=== PATIENT | male | born 1980 | race Asian ===

== ENCOUNTER 2023-03-24 08:20 | Emergency (ER) | payer SELFPAY ==
[~2023-03-24] VITALS: Ht 165.1 cm; Wt 70.3 kg
[2023-03-24 08:20] VITALS: BP_SYST 144; PULSE 83; RESP 17; TEMP 97.6; O2SAT 98
[2023-03-24 09:35] LABS: BASOPHILS % (AUTO) 0.7 % (0.0-2.0); EOSINOPHILS # (AUTO) 0.1 K/uL (0.0-0.4); EOSINOPHILS % (AUTO) 1.1 % (0.0-4.0); HEMATOCRIT 42.1 % (36-54); HEMOGLOBIN 13.9 g/dL (14.0-18.0); LYMPHOCYTES # (AUTO) 1.9 K/uL (1.0-5.5); LYMPHOCYTES % (AUTO) 32.5 % (20.5-51.5); MEAN CORPUSCULAR HEMOGLOBIN 28 pg (27-31); MEAN CORPUSCULAR HGB CONC 33 % (32-36); MEAN CORPUSCULAR VOLUME 85 fL (79.0-98.0); MONOCYTES # (AUTO) 0.5 K/uL (0.0-1.0); MONOCYTES % (AUTO) 9.1 % (1.7-9.3); NEUTROPHILS # (AUTO) 3.4 K/uL (1.8-7.7); NEUTROPHILS % (AUTO) 56.6 % (40.0-70.0); PLATELET COUNT (AUTO) 247 K/uL (130-430); RED BLOOD CELL COUNT(AUTO) 4.94 MIL/uL (4.2-6.2); RED CELL DISTRIBUTION WIDTH 12.7 % (9.0-15.0)
[2023-03-24 09:50] LABS: ANION GAP 8 (5-15); CALCIUM 9.5 mg/dL (8.4-11.0); CARBON DIOXIDE 28 mmol/L (23-29); CHLORIDE 105 mmol/L (98-107); CREATININE 0.85 mg/dL (0.55-1.30); GFR AFRICAN AMERICAN 127 mL/min (>90); GFR NON AFRICAN-AMERICAN 105 mL/min (>90); GLUCOSE 112 mg/dL (74-106); POTASSIUM 3.6 mmol/L (3.5-5.1); SODIUM SERUM 141 mmol/L (136-145); UREA NITROGEN, BLOOD 16 mg/dL (8-21)
[2023-03-24 10:02] LABS: ALANINE AMINOTRANSFERASE 44 U/L (12-78); ALBUMIN 3.8 g/dL (3.4-4.8); ASPARTATE AMINOTRANSFERASE 12 U/L (10-37); BILIRUBIN,DIRECT 0.1 mg/dL (0.0-0.3); TOTAL BILIRUBIN 0.5 mg/dL (0.0-1.0); TOTAL PROTEIN, SERUM 7.2 g/dL (6.4-8.3)
[2023-03-24] MEDS ORDERED: IBUP-1971 PO (12:35)
== END 2023-03-24 12:49 | disposition home or self-care (01) ==
LOC: SED 08:20
DX: R07.2 Precordial pain (principal); R51.9 Headache, unspecified
CPT/HCPCS: 36415; 70450-TC; 70551; 71045; 76376; 80048; 80076; 84484; 85025; 93005; 99285